=== PATIENT | male | born 1995 | race Hispanic/Latino ===

== ENCOUNTER 2018-01-06 07:47 | Emergency (ER) | payer SELFPAY ==
[2018-01-06 07:50] VITALS: BP 150/99; PULSE 87; RESP 16; TEMP 98.7; O2SAT 98
[2018-01-06 07:51] VITALS: BMI 28.7
--- NOTE | 2018-01-06 07:57 | ED PDOC ---
HPI: Psych/Substance Abuse Time Seen by Provider: 01/06/18 07:52 History Per: Patient Onset/Duration Of Symptoms: Unknown Current Symptoms Are (Timing): Better Suicide/Self Injury Attempted (Context): None Modifying Factor(s): Alcohol Severity: Mild Additional Complaint(s): Brought by EMS, found walking in street with pants off. Pt admits to ETOH ingestion. Denies injury. Denies SI/HI. Past Medical History Vital Signs: Last Vital Signs Temp 98.7 F 01/06/18 07:50 Pulse 87 01/06/18 07:50 Resp 16 01/06/18 07:50 BP 150/99 H 01/06/18 07:50 Pulse Ox 98 01/06/18 07:50 - Medical History PMH: No Chronic Diseases - Family History Family History: States: Unknown Family Hx - Allergies Allergies/Adverse Reactions: Allergies Allergy/AdvReac Type Severity Reaction Status Date / Time No Known Allergies Allergy Verified 01/06/18 08:02 Review of Systems ROS Statement: Except As Marked, All Systems Reviewed And Found Negative Physical Exam - Reviewed Nursing Documentation Reviewed: Yes Vital Signs Reviewed: Yes - Physical Exam Appears: Positive for: Non-toxic, No Acute Distress Head Exam: Positive for: ATRAUMATIC, NORMAL INSPECTION, NORMOCEPHALIC Skin: Positive for: Normal Color, Warm, DRY Eye Exam: Positive for: EOMI, Normal appearance, PERRL ENT: Positive for: Normal ENT Inspection Neck: Positive for: Normal, Painless ROM Cardiovascular/Chest: Positive for: Regular Rate, Rhythm Respiratory: Positive for: CNT, Normal Breath Sounds Gastrointestinal/Abdominal: Positive for: Normal Exam, Soft Back: Positive for: Normal Inspection Extremity: Positive for: Normal ROM Neurologic/Psych: Positive for: Alert, Oriented (x3). Negative for: Motor/Sensory Deficits - ECG O2 Sat by Pulse Oximetry: 98 - Progress Re-evaluation Time: 09:49 Condition: Improved (Awake alert oriented x 3 no focal deficits) Disposition - Clinical Impression Clinical Impression: Alcohol abuse - Patient ED Disposition Is Patient to be Admitted: No - Disposition Referrals: [facility] [Outside] Disposition: Routine/Home Disposition Time: 09:50 Condition: FAIR Instructions: Alcohol Abuse and Alcoholism (DC)
== END 2018-01-06 09:25 | disposition home or self-care (01) ==
LOC: H.ER 07:47
DX: F10.10 Alcohol abuse, uncomplicated (principal); Y90.6 Blood alcohol level of 120-199 mg/100 ml
CPT/HCPCS: 82948; 99282; G0480